=== PATIENT | female | born 1960 | race Caucasian/White ===

== ENCOUNTER 2024-10-20 21:47 | Emergency (ER) | payer OTHER ==
[~2024-10-20] VITALS: Ht 167.6 cm; Wt 71.0 kg
[2024-10-20 21:49] VITALS: O2SAT 95
[2024-10-21] MEDS ORDERED: NAPR-1176 MT (01:32)
[2024-10-21] MEDS ORDERED: LIDO-53 TP (01:32)
[2024-10-21] MEDS: KETOROLAC 15MG/ML VIAL IM ONE (01:32)
[2024-10-21 01:36] VITALS: BP 117/78; PULSE 85; RESP 16; TEMP 36.7; O2SAT 95
== END 2024-10-21 01:37 | disposition home or self-care (01) ==
LOC: ER 21:47
DX: M25.511 Pain in right shoulder (principal); M25.531 Pain in right wrist
CPT/HCPCS: 73030; 73110; 99284; 96372; J1885; Z7610 ×2; A4565